=== PATIENT | female | born 1985 | race African-American/Black ===

== ENCOUNTER 2018-06-23 10:52 | Inpatient (IN) | payer OTHER ==
[2018-06-23] MEDS ORDERED: DEXTROSE 5%-LACTATED RINGERS 1,000 ML IV SCH (12:15)
[2018-06-23 14:31] LABS: GAMMA GLUTAMYL TRANSPEPTIDASE 12 U/L (5-85); SGOT/AST 20 U/L (15-37); SGPT/ALT 19 U/L (13-61)
[2018-06-23 15:48] LABS: URINE APPEARANCE CLOUDY; URINE BILIRUBIN NEGATIVE (<2.0 mg/dL); URINE COLOR YELLOW; URINE GLUCOSE (UA) NEGATIVE (NEGATIVE); URINE KETONE NEGATIVE (NEGATIVE); URINE LEUK ESTERASE 3+ (NEGATIVE); URINE NITRITE NEGATIVE (NEGATIVE); URINE PROTEIN 1+ (NEGATIVE); URINE UROBILINOGEN NEGATIVE mg/dL (0.2-1.0)
[2018-06-23 15:51] LABS: EPI CELLS FEW /HPF (FEW); URINE BACTERIA RARE /hpf (NONE SEEN); URINE MUCUS RARE; YEAST FEW
[2018-06-24 03:52] LABS: BASO % 0.6 % (0-2.0); EOS % 0.7 % (0-4.5)
[2018-06-24 03:57] LABS: HEMATOCRIT 32.5 % (32.4-45.2); HEMOGLOBIN 11.3 GM/dL (10.7-15.3); LYMPH % 18.4 % (8-40); MCH 30.3 pg (25.7-33.7); MCHC 34.7 g/dl (32.0-36.0); MEAN CELL VOLUME 87.3 fl (80-96); MEAN PLT VOLUME 10.5 fl (7.5-11.1); MONO % 9.7 % (3.8-10.2); NEUT % 70.6 % (42.8-82.8); PLATELET COUNT 222 K/MM3 (134-434); RBC 3.73 M/mm3 (3.60-5.2); RDW 15.4 % (11.6-15.6); WHITE BLOOD COUNT 9.7 K/mm3 (4.0-10.0)
[2018-06-24] MEDS ORDERED: CITRIC ACID/SODIUM CITRATE 30 ML UNIT-DOSE CUP PO ONE (04:09)
[2018-06-24] MEDS ORDERED: METHYLERGONOVINE MALEATE 0.2 MG/1 ML AMP IM PRN (04:10)
[2018-06-24 04:15] LABS: INR 0.9 (0.83-1.09); PROTHROMBIN TIME (PATIENT) 10.6 SEC (9.7-13.0)
[2018-06-24] MEDS ORDERED: ELECTROLYTE-148 SOLN 1,000 ML IV SCH (04:15)
[2018-06-24 04:22] LABS: ANION GAP 10 MMOL/L (8-16); BLOOD UREA NITROGEN 26 mg/dL (7-18); CALCIUM 8.7 mg/dL (8.5-10.1); CHLORIDE 110 mmol/L (98-107); CO2 19 mmol/L (21-32); CREATININE 2.3 mg/dL (0.55-1.3); GLUCOSE,RANDOM 81 mg/dL (74-106); POTASSIUM 4.8 mmol/L (3.5-5.1); SODIUM 139 mmol/L (136-145)
--- NOTE | 2018-06-24 04:26 | HP ---
Past Medical History - Primary Care Physician PCP:: Jessica Goodman - Admission Chief Complaint: Breech. Polyhyamnious. rupture of membranes. 36 weeks. Macrosomia. Previous Abdominal Myomectomy. Gestational Diabetes History Source: Patient Limitations to Obtaining History: No Limitations - Past Medical History ...: 3 ...Para: 0 ...Term: 0 ...: 0 ...Spon : 2 ...Induced : 0 ...LMP: 10/12/17 ... Weeks Gestation by Dates: 36.1 ...EDC by Dates: 07/19/18 Endocrine: Yes: Diabetes Mellitus - Past Surgical History Hx Myomectomy: No Hx Transabdominal Cerclage: No Additional Surgical History: Abdominal myomectomy at [place] in 2017 - Smoking History Smoking history: Never smoked Aproximately how many cigarettes per day: 0 - Alcohol/Substance Use Hx Alcohol Use: No History of Substance Use: reports: None - Social History Usual Living Arrangement: Yes: With Spouse History of Recent Travel: No Home Medications - Allergies Allergies/Adverse Reactions: Allergies Allergy/AdvReac Type Severity Reaction Status Date / Time latex Allergy Mild Itching Verified 05/24/18 14:17 - Home Medications Home Medications: Ambulatory Orders Vit Calc,Iron,Folic [ Vitamins] 1 each PO DAILY 03/01/18 Physical Exam - Maternity Vital Signs: Vital Signs Temperature 98.3 F 06/23/18 13:45 Pulse Rate 82 06/23/18 16:00 Respiratory Rate 20 06/23/18 16:00 Blood Pressure 136/84 06/23/18 16:00 O2 Sat by Pulse Oximetry (%) - Abdominal Exam/OB Number of Fetuses: Single Presentation: Vertex Contractions: Yes Regularity: Regular Monitor Mode: External Category: I - Vaginal Exam/OB Vaginal Bleediing: No Dilatation (cm): 1 Amniotic Membrane Status: Ruptured Amniotic Fluid: Yes: Meconium Stained Presentation: Henry Breech - Physical Exam Musculoskeletal: Yes: WNL Extremities: Yes: WNL Edema: No Psychiatric: Yes: WNL, Alert, Oriented - Labs Lab Results: CBC, BMP 06/24/18 03:35 Problem List - Problems (1) Macrosomia Code(s): P08.0 - EXCEPTIONALLY LARGE BABY (2) Breech presentation Code(s): O32.1XX0 - MATERNAL CARE FOR BREECH PRESENTATION, UNSP Assessment/Plan Gestational Diabetes Gestational Hypertension Breech previous Section previous abdominal myomectomy sickle cell trait IUP at 36 week premature rupture of membranes - meconium Cat 1 labor Plan Primary Section
[2018-06-24] MEDS ORDERED: CEFAZOLIN 1 GM/D5W 1 GM/50 ML BAG IVPB SCH (04:30)
[2018-06-24] MEDS ORDERED: AMPICILLIN - 2 GM in SODIUM CHLORIDE 100 ML IVPB ONE (04:31)
[2018-06-24] MEDS ORDERED: LABETALOL HCL 200 MG TABLET (FP) PO STA (04:32)
[2018-06-24 05:19] LABS: RETICULOCYTES 2.34 % (0.5-1.5)
[2018-06-24 05:21] LABS: URIC ACID 10.3 mg/dL (2.6-7.2)
[2018-06-24] MEDS: OXYTOCIN 20 UNITS in 0.9% NS 20 UNIT/1,000 ML INFUS.BAG IV SCH ×3 (05:50→15:52)
[2018-06-24] MEDS ORDERED: LABETALOL HCL 200 MG TABLET (FP) PO SCH ×2 (06:00→12:15)
[2018-06-24] MEDS ORDERED: ONDANSETRON 4 MG/2 ML VIAL IVPUSH PRN (06:39)
[2018-06-24 06:47] LABS: ARTERIAL BLOOD GAS BASE EXCESS -9.1 meq/l (-2-2); ARTERIAL BLOOD GAS PO2 2.4 mmHg (80-100)
[2018-06-24 06:50] LABS: VENOUS PC02 49.5 mmHg (38-52); VENOUS PO2 21.6 mmHg (28-48)
[2018-06-24 06:58] VITALS: BMI 34.7
[2018-06-24 07:08] LABS: ARTERIAL BLOOD GAS pH 7.14 (7.35-7.45)
[2018-06-24 07:09] LABS: ARTERIAL BLOOD GAS PCO2 66.8 mmHg (35-45)
[2018-06-24 07:12] LABS: ARTERIAL BLD GAS O2 SATURATION 2.7 % (90-98.9)
--- NOTE | 2018-06-24 07:15 | OP ---
Operative Note - Note: Operative Date: 06/24/18 Pre-Operative Diagnosis: Celi Breech. IUp 36 weeks. Gestation Hypertension. Gestation DM. previous myomectomy. prematare rupture of membranes. labor Operation: primary Section low transverse Findings: Live male infant nuchal cord X 1 celi breech Post-Operative Diagnosis: Same as Pre-op Surgeon: Jessica Goodman Insurance Professional: Dez Marx Anesthesiologist/COMPUTER SYSTEMS SECURITY ADMINISTRATOR: Alonzo Matias Anesthesia: Spinal Estimated Blood Loss (mls): 600 Operative Report Dictated: Yes
[2018-06-24 07:16] LABS: VENOUS PH 7.23 (7.32-7.42)
[2018-06-24] MEDS ORDERED: TUBERCULIN PPD 5 TU/0.1ML SYRINGE (IN PATIENT USE ONLY) ID ONE (08:00)
--- NOTE | 2018-06-24 08:32 | OP ---
DATE OF OPERATION: 06/24/2018 PREOPERATIVE DIAGNOSIS: Celi breech, intrauterine at 36 weeks, gestational hypertension, gestational diabetes, previous myomectomy, premature rupture of membranes, and labor. SURGEON: Gilmer Goodman MD JOURNEYMAN CARPENTER: MEGHAN Gómez. unavailable. POSTOPERATIVE DIAGNOSIS: Celi breech, intrauterine at 36 weeks, gestational hypertension, gestational diabetes, previous myomectomy, premature rupture of membranes, and labor. Plus live male , nuchal cord x1. ANESTHESIA: Spinal. ANESTHESIOLOGIST: Alonzo Matias DO PROCEDURE: Patient was taken to the operating room, placed in supine position, prepped and draped in the usual sterile fashion. A time-out was called in accordance with hospital regulations. A Pfannenstiel skin incision was made with the scalpel. Cautery was then used to go through the layers of the abdominal wall to the level of the fascia. Fascia was cut in the midline. Cautery was then used to open the fascia in smiling fashion. Obdulia was then used to bluntly and sharply dissect the rectus muscle off the fascia. The muscle was split in the midline. Peritoneal cavity was then entered and carried up and downwards. Bladder retractor was then placed. Adhesions were noted, bladder, folded on each other and were removed. Bladder was bluntly dissected out of the operative field. Scalpel was then used to make a low transverse uterine incision. Incision was carried up with the use of bandage scissors. A live male infant was delivered in celi breech extraction. Head was delivered without difficulty. Nuchal cord was noted and reduced. The cord was clamped and cut. Cord pH done. Cord blood obtained. Infant was handed to the see supervisor. Infants weight was 9 pounds 14 ounces. Placenta was manually extracted from the uterus. The uterus was exteriorized and cleaned with clean lap pads. Uterine incision was closed using 0 Biosyn suture, first layer with continuous interlocking and second layer imbricating the first layer. Hemostasis was achieved. Tubes and ovaries noted to be normal. Uterus interiorized. Abdominal cavity cleaned with clean lap pads. Peritoneum closed using 0 Biosyn suture in a continuous fashion. Muscles were approximated in the midline using 0 Vicryl suture. Fascia was then closed using 0 Vicryl suture in 2 parts. Skin was then closed using 3-0 Vicryl in subcuticular fashion. Wound was washed and dressed. Patient tolerated the procedure well. Estimated blood loss was 600 mL. GILMER GOODMAN M.D. [id number]
[2018-06-24] MEDS ORDERED: NIFEdipine E.R. 30 MG TABLET (FP) PO SCH ×3 (09:15→13:49)
[2018-06-24 09:45] LABS: ANISOCYTOSIS 0; MACROCYTOSIS 0
[2018-06-24 11:58] LABS: PLATELET ESTIMATE ADEQUATE
[2018-06-24] MEDS ORDERED: LABETALOL HCL 200 MG TABLET (FP) PO ONE (12:00)
[2018-06-24] MEDS ORDERED: NIFEdipine E.R. 30 MG TABLET (FP) PO ONE (14:00)
--- NOTE | 2018-06-24 16:15 | CONSULT ---
Consult Consult Specialty:: Nephrology ( Marty/ Brando) Referred by:: dr. Domínguez - History of Present Illness Chief Complaint: Intrapartum hypertension. History of Present Illness: 32 y/o female, s/p LSCS for breech prentation at 36 weeks. Has elevated Blood pressure Intra and post . The patient is totally comfortable. has h/o Gestational Diabetes recently. BP was normal until labor. Not known to have any kidney disease. No family h/orenal disease. she used to take NSAID for menstrual pains before she got . - History Source History Provided By: Patient, Medical Record Limitations to Obtaining History: No Limitations - Past Medical History COMMERCIAL LEASING AGENT: Yes: Alzheimer's, CVA, Dementia, Migraine, Multiple Sclerosis, Peripheral Neuropathy, Parkinson's, Seizure, Syncope, TIA, Vertigo, Other Cardio/Vascular: Yes: AFIB, Aneurysm, Aortic Insufficiency, Aortic Stenosis, CAD , CHF, Deep Vein Thrombosis, HTN, Hyperlipdemia, SC, Mitral Insufficiency, Mitral Stenosis, Murmur, Pulmonary Hypertension, Other Pulmonary: Yes: Asthma, Bronchitis, Cancer, COPD, O2 Dependent, Pneumonia, Previously Intubated, Pulmonary Embolus, Pulmonary Fibrosis, Sleep Apnea, Other Gastrointestinal: Yes: Ascites, Cancer, Constipation, Crohn's Disease, Diverticulitis, Diverticulosis, Esophageal Varices, Gastritis, GERD, GI Bleed, Hemorrhoids, Hiatal Hernia, Inflamatory Bowel Disease, Irritable Bowel Disease, Pancreatitis, Peptic Ulcer Disease, Ulcerative Colitis, Other Hepatobiliary: Yes: Cirrhosis, Cholelithiasis, Cholecystitis, Choledocholithiasis, Hepatitis A, Hepatitis B, Hepatitis C, Other Renal/: No: Renal Inusuff, Hematuria, Renal Calculi, UTI Endocrine: Yes: Diabetes Mellitus (gestational) - Past Surgical History Past Surgical History: Yes: None Additional Surgical History: Abdominal myomectomy at [place] in 2017 - Alcohol/Substance Use Hx Alcohol Use: No History of Substance Use: reports: None - Smoking History Smoking history: Never smoked Aproximately how many cigarettes per day: 0 - Social History History of Recent Travel: No Home Medications - Allergies Allergies/Adverse Reactions: Allergies Allergy/AdvReac Type Severity Reaction Status Date / Time latex Allergy Mild Itching Verified 05/24/18 14:17 - Home Medications Home Medications: Ambulatory Orders Vit Calc,Iron,Folic [ Vitamins] 1 each PO DAILY 03/01/18 Review of Systems - Review of Systems Constitutional: reports: No Symptoms Eyes: reports: No Symptoms. denies: Blurred Vision, Double Vision, Eye Pain, Photophobia HENT: reports: No Symptoms Neck: reports: No Symptoms Cardiovascular: reports: No Symptoms. denies: Chest Pain, Palpitations, Shortness of Breath Respiratory: reports: No Symptoms Gastrointestinal: reports: No Symptoms Genitourinary: reports: No Symptoms Neurological: reports: No Symptoms. denies: Change in LOC, Change in Speech, Confusion, Dizziness Hematology/Lymphatic: denies: No Symptoms, Easily Bruised, Excessive Bleeding Physical Exam Vital Signs: Vital Signs Temperature 97.8 F 06/24/18 12:00 Pulse Rate 87 06/24/18 15:00 Respiratory Rate 18 06/24/18 16:00 Blood Pressure 172/85 H 06/24/18 15:00 O2 Sat by Pulse Oximetry (%) 100 06/24/18 08:00 Constitutional: Yes: Well Nourished Eyes: Yes: WNL HENT: Yes: WNL Neck: Yes: WNL Cardiovascular: Yes: WNL, Regular Rate and Rhythm, S1, S2 Respiratory: Yes: Regular, CTA Bilaterally Gastrointestinal: Yes: Normal Bowel Sounds, Soft Renal/: No: CVA Tenderness - Left, CVA Tenderness - Right Edema: Yes Edema: LLE: Trace, RLE: Trace Neurological: Yes: WNL, Alert, Oriented Labs: CBC, BMP 06/24/18 03:45 06/24/18 03:35 Assessment/Plan 32 y/o female, s/p LSCS for breech presentation. Has elevated Blood pressure Intra and post . The patient is totally comfortable. has h/o Gestational Diabetes recently. BP was normal until labor. Not known to have any kidney disease. No family h/orenal disease. She used to take NSAID for menstrual pains before she got . associated hypertension...Pre-ecclampsia. BP remains elevated.No evidence of HELLP. Will continue Labetalol and Nifedipine, and titrate to BP systolic less than 145 mm Hg. Abnormal Renal functions... ? AYESHA. ? CKD. (In 2012 she had a normal serum cr of 0.9mg/dL). The etiology of this seems quite obscure. There is no clinical evidence of Acute cortical necrosis. No oliguria, or hematuria. Basic w/u ordered. detailed w/u warranted if the renal functions do not improve. Orders reviewed with [facility] nurses regarding medication regimen. discussed with dr. Domínguez. Thank you. Will follow with you. Sil Ferguson MD
[2018-06-24] MEDS: CEFAZOLIN 1 GM/D5W 1 GM/50 ML BAG IVPB SCH (18:00)
[2018-06-24] MEDS: LABETALOL HCL 200 MG TABLET (FP) PO SCH (18:00)
[2018-06-24 18:08] LABS: RETICULOCYTES 2.5 % (0.5-1.5)
[2018-06-24 19:18] LABS: ANION GAP 11 MMOL/L (8-16); BLOOD UREA NITROGEN 20 mg/dL (7-18); CALCIUM 8.3 mg/dL (8.5-10.1); CHLORIDE 109 mmol/L (98-107); CO2 20 mmol/L (21-32); GAMMA GLUTAMYL TRANSPEPTIDASE 10 U/L (5-85); GLUCOSE,RANDOM 162 mg/dL (74-106); POTASSIUM 4.8 mmol/L (3.5-5.1); SGOT/AST 29 U/L (15-37); SGPT/ALT 16 U/L (13-61); SODIUM 140 mmol/L (136-145); URIC ACID 9.3 mg/dL (2.6-7.2)
[2018-06-25] MEDS: LABETALOL HCL 200 MG TABLET (FP) PO SCH ×2 (01:27→06:11)
[2018-06-25] MEDS: CEFAZOLIN 1 GM/D5W 1 GM/50 ML BAG IVPB SCH ×2 (02:30→09:05)
[2018-06-25] MEDS: oxyCODONE HCL 5 MG TABLET PO PRN ×4 (03:08→21:13)
[2018-06-25] MEDS ORDERED: oxyCODONE HCL 5 MG TABLET PO PRN (04:10)
[2018-06-25] MEDS ORDERED: BISACODYL 10 MG SUPP.RECT RC PRN (04:11)
[2018-06-25] MEDS: ACETAMINOPHEN 325 MG TABLET (FP) PO PRN ×3 (04:41→21:13)
[2018-06-25] MEDS: NIFEdipine E.R. 30 MG TABLET (FP) PO SCH (06:11)
[2018-06-25 06:45] LABS: BASO % 0.4 % (0-2.0); EOS % 0.7 % (0-4.5); HEMATOCRIT 31.9 % (32.4-45.2); HEMOGLOBIN 10.8 GM/dL (10.7-15.3); LYMPH % 11.3 % (8-40); MCH 29.4 pg (25.7-33.7); MCHC 33.8 g/dl (32.0-36.0); MONO % 8.3 % (3.8-10.2); NEUT % 79.3 % (42.8-82.8); PLATELET COUNT 191 K/MM3 (134-434); RBC 3.66 M/mm3 (3.60-5.2); RDW 15.1 % (11.6-15.6); WHITE BLOOD COUNT 14.4 K/mm3 (4.0-10.0)
[2018-06-25 07:33] LABS: ALBUMIN 1.8 g/dl (3.4-5.0); ALK PHOS 119 U/L (45-117); ANION GAP 9 MMOL/L (8-16); BILIRUBIN,TOTAL 0.4 mg/dL (0.2-1); BLOOD UREA NITROGEN 17 mg/dL (7-18); CALCIUM 8.2 mg/dL (8.5-10.1); CHLORIDE 111 mmol/L (98-107); CO2 21 mmol/L (21-32); CREATININE 1.6 mg/dL (0.55-1.3); GLUCOSE,RANDOM 86 mg/dL (74-106); PHOSPHOROUS 3.4 mg/dL (2.5-4.9); POTASSIUM 4.8 mmol/L (3.5-5.1); SGOT/AST 25 U/L (15-37); SGPT/ALT 14 U/L (13-61); SODIUM 141 mmol/L (136-145); TOT PROT 4.9 g/dl (6.4-8.2)
[2018-06-25] MEDS: SIMETHICONE 80 MG TAB.CHEW (FP) PO PRN ×3 (08:04→21:13)
[2018-06-25] MEDS: LABETALOL HCL 200 MG TABLET (FP) PO PRN ×2 (09:05→18:21)
--- NOTE | 2018-06-25 09:12 | PN ---
Progress Note (short form) - Note Progress Note: Anesthesiology Post-op 32 y.o. woman POD#1 s/p C/S under spinal anesthesia. Pt. is OOB in chair, comfortable in NAD. She c/o some mild h/a earlier but this has improved. BP remains slightly elevated and pt. has Labetalol ordered. Other VSS. Creatinine elevated, but trending down from yesterday. She is able to move legs easily and has no residual paresthesia. 32 y.o. woman with preeclampsia but otherwise stable post-operative course. Continue management as per primary team.
[2018-06-25] MEDS: PRENATAL VITAMINS W/ FOLIC ACID TABLET (FP) PO SCH (09:16)
--- NOTE | 2018-06-25 11:49 | PN ---
Progress Note, Physician Chief Complaint: The patient seen and examined in her room. Has some headache. ? 2/2 Nifedipine. Denies anychest pain, Shortness of breath. No urinary complaints. History of Present Illness: 32 y/o female, s/p LSCS for breech prentation at 36 weeks. Elevated Blood pressure noted Intra and post . Has h/o Gestational Diabetes recently. BP was normal until labor. Not known to have any kidney disease. No family h/o renal disease. - Current Medication List Current Medications: Active Medications Acetaminophen (Tylenol -) 650 mg PO Q4H PRN PRN Reason: PAIN LEVEL 1-5 Last Admin: 06/25/18 04:41 Dose: 650 mg Bisacodyl (Dulcolax Suppository -) 10 mg RC PRN PRN PRN Reason: CONSTIPATION Diphenhydramine HCl (Benadryl Injection -) 25 mg IVPUSH Q4H PRN PRN Reason: Pruritis Last Admin: 06/24/18 23:10 Dose: 25 mg Oxytocin/Sodium Chloride (Normal Saline+20 Units Oxytocin -) 20 unit in 1,000 mls @ 125 mls/hr IV [facility] Last Admin: 06/24/18 15:52 Dose: 125 mls/hr Parenteral Electrolytes (Plasma-Lyte 148 -) 1,000 mls @ 125 mls/hr IV [facility] Last Admin: 06/24/18 03:15 Dose: 125 mls/hr Labetalol HCl (Normodyne -) 200 mg PO Q6H PRN PRN Reason: HYPERTENSION Last Admin: 06/25/18 09:05 Dose: 200 mg Methylergonovine Maleate (Methergine Injection -) 0.2 mg IM Q4H PRN PRN Reason: Excessive Bleeding (L&D) Nifedipine (Procardia Xl -) 60 mg PO 0600 [facility] Last Admin: 06/25/18 06:11 Dose: 60 mg Ondansetron HCl (Zofran Injection) 4 mg IVPUSH Q4H PRN PRN Reason: NAUSEA Oxycodone HCl (Roxicodone -) 5 mg PO Q4H PRN PRN Reason: PAIN LEVEL 4 - 6 Last Admin: 06/24/18 21:30 Dose: 5 mg Oxycodone HCl (Roxicodone -) 10 mg PO Q4H PRN PRN Reason: PAIN LEVEL 7 - 10 Last Admin: 06/25/18 08:04 Dose: 10 mg Multivit/Folic Acid/Iron ( Vitamins (Sjr) -) 1 tab PO DAILY [facility] Last Admin: 06/25/18 09:16 Dose: Not Given Simethicone (Mylicon -) 80 mg PO Q4H PRN PRN Reason: GAS Last Admin: 06/25/18 08:04 Dose: 80 mg - Objective Vital Signs: Vital Signs Temperature 98.1 F 06/25/18 10:00 Pulse Rate 88 06/25/18 10:00 Respiratory Rate 20 06/25/18 10:00 Blood Pressure 147/94 06/25/18 10:00 O2 Sat by Pulse Oximetry (%) 100 06/24/18 08:00 Constitutional: Yes: Anxious, Mild Distress (from pain) Eyes: No: Diplopia, PERRL HENT: Yes: Atraumatic, Normocephalic Neck: Yes: Supple, Trachea Midline Cardiovascular: Yes: Regular Rate and Rhythm, S1, S2 Respiratory: Yes: CTA Bilaterally, Diminished, SOB Gastrointestinal: Yes: Normal Bowel Sounds, Soft Genitourinary: No: Bladder Distention, CVA Tenderness - Left, CVA Tenderness - Right Edema: LLE: Trace, RLE: Trace Labs: CBC, BMP 06/25/18 05:15 06/25/18 05:15 INR, PTT INR 0.90 (0.83-1.09) 06/24/18 03:35 Assessment/Plan 32 y/o female, s/p LSCS for breech presentation. Has elevated Blood pressure Intra and . The patient is totally comfortable. has h/o Gestational Diabetes recently. BP was normal until labor. Not known to have any kidney disease. No family h/o renal disease. associated hypertension...Pre-ecclampsia. BP slowly improving on the current regimen. Abnormal Renal functions... ? AYESHA. ? CKD. (In 2012 she had a normal serum cr of 0.9mg/dL). Possibly from Hemodynamic factors, rather than intrinsic Renal disease. renal functions are slowly improving. Maintain euvolemia. Thank you. Will follow with you. Sil Ferguson MD
[2018-06-25 14:18] LABS: BASO % 0.3 % (0-2.0); EOS % 0.5 % (0-4.5); HEMOGLOBIN 10.6 GM/dL (10.7-15.3); LYMPH % 8.5 % (8-40); MCH 29.8 pg (25.7-33.7); MCHC 34.3 g/dl (32.0-36.0); MEAN CELL VOLUME 86.9 fl (80-96); MEAN PLT VOLUME 9.5 fl (7.5-11.1); MONO % 6.7 % (3.8-10.2); PLATELET COUNT 199 K/MM3 (134-434); RBC 3.56 M/mm3 (3.60-5.2); RDW 15.3 % (11.6-15.6); WHITE BLOOD COUNT 13.6 K/mm3 (4.0-10.0)
--- NOTE | 2018-06-25 16:21 | PN ---
Post Note - Post Date of Delivery: 06/24/18 Post Day: 1 Vital Signs: Vital Signs - 24 hr 06/24/18 06/24/18 06/24/18 17:00 17:43 18:00 Temperature 98.1 F Pulse Rate 74 Respiratory 18 18 18 Rate Blood Pressure 146/88 06/24/18 06/24/18 06/24/18 19:00 20:00 21:00 Temperature Pulse Rate 74 78 80 Respiratory 18 18 20 Rate Blood Pressure 138/88 138/91 141/100 06/24/18 06/24/18 06/25/18 22:00 23:00 00:00 Temperature 98.1 F Pulse Rate 78 84 Respiratory 18 20 20 Rate Blood Pressure 132/88 121/84 06/25/18 06/25/18 06/25/18 01:00 02:00 03:00 Temperature 98.0 F Pulse Rate 83 Respiratory 20 20 20 Rate Blood Pressure 139/95 06/25/18 06/25/18 06/25/18 04:00 05:00 06:00 Temperature 98.1 F 98.2 F Pulse Rate 87 79 Respiratory 20 20 20 Rate Blood Pressure 151/91 134/78 06/25/18 06/25/18 06/25/18 07:00 08:00 10:00 Temperature 98.1 F Pulse Rate 88 Respiratory 20 20 20 Rate Blood Pressure 147/94 06/25/18 06/25/18 06/25/18 11:00 12:00 13:00 Temperature Pulse Rate Respiratory 20 20 20 Rate Blood Pressure 06/25/18 06/25/18 14:00 15:00 Temperature 97.7 F Pulse Rate 88 Respiratory 20 20 Rate Blood Pressure 122/86 Labs: Laboratory Results - last 24 hr 06/24/18 06/24/18 06/24/18 03:35 17:52 17:52 WBC RBC Hgb Hct MCV MCH MCHC RDW Plt Count 193 MPV Absolute Neuts (auto) Neutrophils % Lymphocytes % Monocytes % Eosinophils % Basophils % Nucleated RBC % Retic Count 2.50 H Haptoglobin < 10 L Sodium 140 Potassium 4.8 Chloride 109 H Carbon Dioxide 20 L Anion Gap 11 BUN 20 H Creatinine 2.0 H Creat Clearance w eGFR 29.06 POC Glucometer Random Glucose 162 H Uric Acid 9.3 H Calcium 8.3 L Phosphorus Total Bilirubin GGT AST ALT Alkaline Phosphatase Total Protein Albumin TSH 06/24/18 06/25/18 06/25/18 17:52 05:15 05:15 WBC 14.4 H RBC 3.66 Hgb 10.8 Hct 31.9 L MCV 87.0 MCH 29.4 MCHC 33.8 RDW 15.1 Plt Count 191 MPV 10.0 Absolute Neuts (auto) 11.4 H Neutrophils % 79.3 Lymphocytes % 11.3 D Monocytes % 8.3 Eosinophils % 0.7 Basophils % 0.4 Nucleated RBC % 0 Retic Count Haptoglobin Sodium 141 Potassium 4.8 Chloride 111 H Carbon Dioxide 21 Anion Gap 9 BUN 17 Creatinine 1.6 H Creat Clearance w eGFR 37.60 POC Glucometer Random Glucose 86 Uric Acid Calcium 8.2 L Phosphorus 3.4 Total Bilirubin 0.4 GGT 10 AST 29 25 ALT 16 14 Alkaline Phosphatase 119 H Total Protein 4.9 L Albumin 1.8 L TSH 1.06 06/25/18 06/25/18 06:59 13:45 WBC 13.6 H RBC 3.56 L Hgb 10.6 L Hct 31.0 L MCV 86.9 MCH 29.8 MCHC 34.3 RDW 15.3 Plt Count 199 MPV 9.5 Absolute Neuts (auto) 11.5 H Neutrophils % 84.0 H Lymphocytes % 8.5 D Monocytes % 6.7 Eosinophils % 0.5 Basophils % 0.3 Nucleated RBC % 0 Retic Count Haptoglobin Sodium Potassium Chloride Carbon Dioxide Anion Gap BUN Creatinine Creat Clearance w eGFR POC Glucometer 99 Random Glucose Uric Acid Calcium Phosphorus Total Bilirubin GGT AST ALT Alkaline Phosphatase Total Protein Albumin TSH - Subjective Subjective: No Complaints, No Nausea or vomiting, Scant lochia - Objective Afebrile: Yes Breast: Not engorged Abdomen: Soft, Non-tender Uterus: Fundus firm Vagina: Scant lochia Extremities: Edema - Assessment/Plan (1) Macrosomia Assessment: Other (SP section Gestation HTN) Plan: Routine Care, Other (Continue labetalol COntinue procardia)
[2018-06-26] MEDS: NIFEdipine E.R. 30 MG TABLET (FP) PO SCH (05:54)
[2018-06-26 07:48] LABS: ALBUMIN 2.1 g/dl (3.4-5.0); ALK PHOS 129 U/L (45-117); ANION GAP 7 MMOL/L (8-16); BILIRUBIN,TOTAL 0.4 mg/dL (0.2-1); BLOOD UREA NITROGEN 15 mg/dL (7-18); CALCIUM 8.6 mg/dL (8.5-10.1); CHLORIDE 108 mmol/L (98-107); CO2 24 mmol/L (21-32); CREATININE 1.7 mg/dL (0.55-1.3); GLUCOSE,RANDOM 89 mg/dL (74-106); POTASSIUM 4.6 mmol/L (3.5-5.1); SGOT/AST 28 U/L (15-37); SGPT/ALT 15 U/L (13-61); SODIUM 139 mmol/L (136-145); TOT PROT 5.8 g/dl (6.4-8.2)
[2018-06-26] MEDS: PRENATAL VITAMINS W/ FOLIC ACID TABLET (FP) PO SCH (09:12)
--- NOTE | 2018-06-26 10:39 | PN ---
Post Note - Post Date of Delivery: 06/24/18 Vital Signs: Vital Signs - 24 hr 06/25/18 06/25/18 06/25/18 11:00 12:00 13:00 Temperature Pulse Rate Respiratory 20 20 20 Rate Blood Pressure 06/25/18 06/25/18 06/25/18 14:00 15:00 18:00 Temperature 97.7 F 98 F Pulse Rate 88 90 Respiratory 20 20 20 Rate Blood Pressure 122/86 143/93 06/25/18 06/26/18 06/26/18 22:00 02:00 06:00 Temperature 98.5 F 98.5 F 98.3 F Pulse Rate 83 83 89 Respiratory 20 20 20 Rate Blood Pressure 137/85 130/83 127/81 06/26/18 07:45 Temperature 98.7 F Pulse Rate 81 Respiratory 20 Rate Blood Pressure 139/80 Labs: Laboratory Results - last 24 hr 06/25/18 06/26/18 13:45 06:45 WBC 13.6 H RBC 3.56 L Hgb 10.6 L Hct 31.0 L MCV 86.9 MCH 29.8 MCHC 34.3 RDW 15.3 Plt Count 199 MPV 9.5 Absolute Neuts (auto) 11.5 H Neutrophils % 84.0 H Lymphocytes % 8.5 D Monocytes % 6.7 Eosinophils % 0.5 Basophils % 0.3 Nucleated RBC % 0 Sodium 139 Potassium 4.6 Chloride 108 H Carbon Dioxide 24 Anion Gap 7 L BUN 15 Creatinine 1.7 H Creat Clearance w eGFR 35.06 Random Glucose 89 Calcium 8.6 Total Bilirubin 0.4 AST 28 ALT 15 Alkaline Phosphatase 129 H Total Protein 5.8 L Albumin 2.1 L - Subjective Subjective: No Complaints - Objective Afebrile: Yes Breast: Not engorged Abdomen: Soft, Non-tender Uterus: Fundus firm, Non-tender Vagina: Scant lochia Extremities: Non-tender - Assessment/Plan (1) Macrosomia Assessment: Other (Gestational Hypertension sp section) (2) Breech presentation Assessment: Other (Continue present management)
--- NOTE | 2018-06-26 11:40 | PN ---
Progress Note (short form) - Note Progress Note: Renal follow up for hypertension and AYESHA/CKD Pt seen and examined at the bedside had some abd pain no headache today no sob, chest pain, abd pain making urine Vital Signs Temperature 98.7 F 06/26/18 07:45 Pulse Rate 81 06/26/18 07:45 Respiratory Rate 20 06/26/18 07:45 Blood Pressure 139/80 06/26/18 07:45 O2 Sat by Pulse Oximetry (%) 100 06/24/18 08:00 Intake & Output 06/23/18 06/24/18 06/25/18 06/26/18 23:59 23:59 23:59 23:59 Intake Total 1000 5325 450 Output Total 2850 2750 Balance 1000 2475 -2300 Weight 76.204 kg 88.904 kg NAD Trace LE edema CBC, BMP 06/25/18 13:45 06/26/18 06:45 Current Medications Acetaminophen (Tylenol -) 650 mg PO Q4H PRN PRN Reason: PAIN LEVEL 1-5 Last Admin: 06/25/18 21:13 Dose: 650 mg Bisacodyl (Dulcolax Suppository -) 10 mg RC PRN PRN PRN Reason: CONSTIPATION Diphenhydramine HCl (Benadryl Injection -) 25 mg IVPUSH Q4H PRN PRN Reason: Pruritis Last Admin: 06/24/18 23:10 Dose: 25 mg Labetalol HCl (Normodyne -) 200 mg PO Q6H PRN PRN Reason: HYPERTENSION Last Admin: 06/25/18 18:21 Dose: 200 mg Methylergonovine Maleate (Methergine Injection -) 0.2 mg IM Q4H PRN PRN Reason: Excessive Bleeding (L&D) Nifedipine (Procardia Xl -) 60 mg PO 0600 [facility] Last Admin: 06/26/18 05:54 Dose: 60 mg Ondansetron HCl (Zofran Injection) 4 mg IVPUSH Q4H PRN PRN Reason: NAUSEA Oxycodone HCl (Roxicodone -) 5 mg PO Q4H PRN PRN Reason: PAIN LEVEL 4 - 6 Last Admin: 06/24/18 21:30 Dose: 5 mg Oxycodone HCl (Roxicodone -) 10 mg PO Q4H PRN PRN Reason: PAIN LEVEL 7 - 10 Last Admin: 06/25/18 21:13 Dose: 10 mg Multivit/Folic Acid/Iron ( Vitamins (Sjr) -) 1 tab PO DAILY [facility] Last Admin: 06/26/18 09:12 Dose: 1 tab Simethicone (Mylicon -) 80 mg PO Q4H PRN PRN Reason: GAS Last Admin: 06/25/18 21:13 Dose: 80 mg 32 year old Jud [place] woman with no significant PMhx who presented for C- section now with AYESHA and Hypertension #AYESHA vs. CKD # Hypertension (normal LFT's an ptl counts, 1+ protein in urine) Renal function with gradual improvement, AYESHA may be related to fluid shifts and BP shifts at time of dilivery Check Renal US to ensure there are no structural abnormalities of the kidney Check UPCR continue BP control with Nifedpine ER 30mg Daily, continue Labetalol for SBP > 160/100 pain control w/o NSIADis Trend renal function and BP Low salt diet Sean Michaels DO
[2018-06-26] MEDS ORDERED: LABETALOL HCL 200 MG TABLET (FP) PO PRN (11:42)
[2018-06-26 12:56] LABS: BASO % 0.6 % (0-2.0); EOS % 1.1 % (0-4.5); HEMATOCRIT 30.6 % (32.4-45.2); HEMOGLOBIN 10.7 GM/dL (10.7-15.3); LYMPH % 12.7 % (8-40); MCH 30.4 pg (25.7-33.7); MCHC 34.9 g/dl (32.0-36.0); MEAN PLT VOLUME 9.7 fl (7.5-11.1); MONO % 8.2 % (3.8-10.2); NEUT % 77.4 % (42.8-82.8); PLATELET COUNT 227 K/MM3 (134-434); RBC 3.52 M/mm3 (3.60-5.2); RDW 15.6 % (11.6-15.6); WHITE BLOOD COUNT 11.2 K/mm3 (4.0-10.0)
[2018-06-26] MEDS: oxyCODONE HCL 5 MG TABLET PO PRN (13:59)
[2018-06-26] MEDS: ACETAMINOPHEN 325 MG TABLET (FP) PO PRN (13:59)
[2018-06-26] MEDS: SIMETHICONE 80 MG TAB.CHEW (FP) PO PRN (14:00)
[2018-06-26 15:23] LABS: ANISOCYTOSIS 1+; MACROCYTOSIS 0; PLATELET ESTIMATE NORMAL
[2018-06-27] MEDS: ACETAMINOPHEN 325 MG TABLET (FP) PO PRN ×3 (00:02→21:14)
[2018-06-27] MEDS: oxyCODONE HCL 5 MG TABLET PO PRN ×3 (00:03→21:14)
[2018-06-27] MEDS: NIFEdipine E.R. 30 MG TABLET (FP) PO SCH (06:15)
[2018-06-27 08:48] LABS: BASO % 0.6 % (0-2.0); EOS % 1.6 % (0-4.5); HEMATOCRIT 29.2 % (32.4-45.2); HEMOGLOBIN 10.2 GM/dL (10.7-15.3); LYMPH % 19.7 % (8-40); MCH 30.5 pg (25.7-33.7); MEAN PLT VOLUME 8.8 fl (7.5-11.1); MONO % 8.6 % (3.8-10.2); NEUT % 69.5 % (42.8-82.8); PLATELET COUNT 225 K/MM3 (134-434); RBC 3.36 M/mm3 (3.60-5.2); RDW 15.6 % (11.6-15.6); WHITE BLOOD COUNT 8.5 K/mm3 (4.0-10.0)
[2018-06-27 08:57] LABS: ANION GAP 6 MMOL/L (8-16); BLOOD UREA NITROGEN 17 mg/dL (7-18); CALCIUM 8.4 mg/dL (8.5-10.1); CHLORIDE 107 mmol/L (98-107); CO2 27 mmol/L (21-32); CREATININE 1.4 mg/dL (0.55-1.3); GLUCOSE,RANDOM 85 mg/dL (74-106); MAGNESIUM 1.6 mg/dL (1.8-2.4); PHOSPHOROUS 3.6 mg/dL (2.5-4.9); POTASSIUM 4.1 mmol/L (3.5-5.1); SODIUM 140 mmol/L (136-145)
[2018-06-27] MEDS: PRENATAL VITAMINS W/ FOLIC ACID TABLET (FP) PO SCH (10:35)
--- NOTE | 2018-06-27 10:58 | PN ---
Post Progress Note - Subjective Subjective: 32 yo Para 1 status post primary , seen and evaluated. Doing well. Post Day: 3 Type of Delivery: Primary C/S Vital Signs: Vital Signs Temperature 98.4 F 06/27/18 06:00 Pulse Rate 99 H 06/27/18 06:00 Respiratory Rate 20 06/27/18 09:00 Blood Pressure 135/83 06/27/18 06:00 O2 Sat by Pulse Oximetry (%) 100 06/27/18 09:00 Breast Exam: Yes: Soft Uterus: Yes: Fundus Firm Incision: Yes: Other (Steri strips in place) Abdomen/GI: Yes: Abdomen soft, Tolerating PO Lochia: Yes: Rubra Lochia, amount: Small Extremities: Yes: Calves non-tender Activity: Ambulating - Labs Labs: CBC WBC 8.5 K/mm3 (4.0-10.0) 06/27/18 08:00 RBC 3.36 M/mm3 (3.60-5.2) L 06/27/18 08:00 Hgb 10.2 GM/dL (10.7-15.3) L 06/27/18 08:00 Hct 29.2 % (32.4-45.2) L 06/27/18 08:00 MCV 87.0 fl (80-96) 06/27/18 08:00 MCH 30.5 pg (25.7-33.7) 06/27/18 08:00 MCHC 35.0 g/dl (32.0-36.0) 06/27/18 08:00 RDW 15.6 % (11.6-15.6) 06/27/18 08:00 Plt Count 225 K/MM3 (134-434) 06/27/18 08:00 MPV 8.8 fl (7.5-11.1) 06/27/18 08:00 Absolute Neuts (auto) 5.9 K/mm3 (1.5-8.0) 06/27/18 08:00 Neutrophils % 69.5 % (42.8-82.8) 06/27/18 08:00 Neutrophils % (Manual) 77.2 % (42.8-82.8) 06/26/18 12:17 Band Neutrophils % 1.0 % 06/26/18 12:17 Lymphocytes % 19.7 % (8-40) D 06/27/18 08:00 Lymphocytes % (Manual) 10.9 % (8-40) D 06/26/18 12:17 Monocytes % 8.6 % (3.8-10.2) 06/27/18 08:00 Monocytes % (Manual) 1 % (3.8-10.2) L D 06/26/18 12:17 Eosinophils % 1.6 % (0-4.5) 06/27/18 08:00 Eosinophils % (Manual) 2.0 % (0-4.5) 06/26/18 12:17 Basophils % 0.6 % (0-2.0) 06/27/18 08:00 Basophils % (Manual) 1.0 % (0-2.0) D 06/26/18 12:17 Myelocytes % (Man) 1 % (0-2) D 06/26/18 12:17 Promyelocytes % (Man) 0 % (0-2) 06/26/18 12:17 Blast Cells % (Manual) 0 % (0-0) D 06/26/18 12:17 Nucleated RBC % 0 % (0-0) 06/27/18 08:00 Metamyelocytes 1 % (0-2) D 06/26/18 12:17 Hypochromia 1+ 06/26/18 12:17 Platelet Estimate Normal 06/26/18 12:17 Polychromasia 0 06/26/18 12:17 Poikilocytosis 0 06/26/18 12:17 Anisocytosis 1+ 06/26/18 12:17 Microcytosis 1+ 06/26/18 12:17 Macrocytosis 0 06/26/18 12:17 Retic Count 2.50 % (0.5-1.5) H 06/24/18 17:52 Haptoglobin < 10 mg/dL (34-200) L 06/24/18 17:52 Problem List - Problems (1) Status post primary low transverse section Code(s): Z98.891 - HISTORY OF UTERINE SCAR FROM PREVIOUS SURGERY Assessment/Plan Status post delivery Stable Continue routine post op care
[2018-06-27] MEDS: SIMETHICONE 80 MG TAB.CHEW (FP) PO PRN ×2 (12:52→21:15)
--- NOTE | 2018-06-27 13:07 | PN ---
Progress Note (short form) - Note Progress Note: Renal follow up for hypertension and AYESHA/CKD Pt seen and examined at the bedside no acute complaints denies any DENG, dizziness, cp, abd pain, flank pain making urine Vital Signs Temperature 97.2 F L 06/27/18 10:00 Pulse Rate 89 06/27/18 10:00 Respiratory Rate 20 06/27/18 10:00 Blood Pressure 121/75 06/27/18 10:00 O2 Sat by Pulse Oximetry (%) 100 06/27/18 09:00 Intake & Output 06/24/18 06/25/18 06/26/18 06/27/18 23:59 23:59 23:59 23:59 Intake Total 5325 450 Output Total 2850 2750 Balance 2475 -2300 Weight 88.904 kg NAD Trace LE edema CBC, BMP 06/27/18 08:00 06/27/18 08:00 Current Medications Acetaminophen (Tylenol -) 650 mg PO Q4H PRN PRN Reason: PAIN LEVEL 1-5 Last Admin: 06/27/18 12:52 Dose: 650 mg Bisacodyl (Dulcolax Suppository -) 10 mg RC PRN PRN PRN Reason: CONSTIPATION Diphenhydramine HCl (Benadryl Injection -) 25 mg IVPUSH Q4H PRN PRN Reason: Pruritis Last Admin: 06/24/18 23:10 Dose: 25 mg Labetalol HCl (Normodyne -) 200 mg PO Q6H PRN PRN Reason: HYPERTENSION Methylergonovine Maleate (Methergine Injection -) 0.2 mg IM Q4H PRN PRN Reason: Excessive Bleeding (L&D) Nifedipine (Procardia Xl -) 60 mg PO 0600 ADRIA Last Admin: 06/27/18 06:15 Dose: 60 mg Ondansetron HCl (Zofran Injection) 4 mg IVPUSH Q4H PRN PRN Reason: NAUSEA Oxycodone HCl (Roxicodone -) 5 mg PO Q4H PRN PRN Reason: PAIN LEVEL 4 - 6 Last Admin: 06/24/18 21:30 Dose: 5 mg Oxycodone HCl (Roxicodone -) 10 mg PO Q4H PRN PRN Reason: PAIN LEVEL 7 - 10 Last Admin: 06/27/18 12:53 Dose: 10 mg Multivit/Folic Acid/Iron ( Vitamins (Sjr) -) 1 tab PO DAILY ADRIA Last Admin: 06/27/18 10:35 Dose: 1 tab Simethicone (Mylicon -) 80 mg PO Q4H PRN PRN Reason: GAS Last Admin: 06/27/18 12:52 Dose: 80 mg 32 year old Jud Qat[place] woman with no significant PMhx who presented for C- section now with AYESHA and Hypertension #AYESHA vs. CKD # Hypertension (normal LFT's an ptl counts, 1+ protein in urine) Renal function with gradual improvement, AYESHA may be related to fluid shifts and BP shifts at time of dilivery + hydronephrosis US showed b/l hydronephrosis but likely physiologic hydronephrosis of pt w/o flank pain to indicate stone disease and also lacks a history of stone disease given renal function is already improving less likely that pt has a functional obstruction now would continue to trend renal function and electrolytes continue Nifedpine ER 30mg daily with Labetalol for surges in BP continue low salt diet pt will require follow up as an outpatient Sean Michaels DO
[2018-06-27 13:54] LABS: ANISOCYTOSIS 0; MACROCYTOSIS 0; PLATELET ESTIMATE NORMAL
[2018-06-28] MEDS: NIFEdipine E.R. 30 MG TABLET (FP) PO SCH (05:50)
[2018-06-28 05:54] VITALS: TEMP 98.1
[2018-06-28 08:14] LABS: ANION GAP 8 MMOL/L (8-16); BLOOD UREA NITROGEN 21 mg/dL (7-18); CHLORIDE 104 mmol/L (98-107); CO2 27 mmol/L (21-32); CREATININE 1.4 mg/dL (0.55-1.3); GLUCOSE,RANDOM 93 mg/dL (74-106); POTASSIUM 4.2 mmol/L (3.5-5.1); SODIUM 138 mmol/L (136-145)
[2018-06-28] MEDS: PRENATAL VITAMINS W/ FOLIC ACID TABLET (FP) PO SCH (09:05)
--- NOTE | 2018-06-28 11:23 | PN ---
Progress Note (short form) - Note Progress Note: Renal follow up for hypertension and AYESHA/CKD Pt seen and examined at the bedside no acute complaints for discharge home today Vital Signs Temperature 98.1 F 06/28/18 05:53 Pulse Rate 87 06/28/18 05:53 Respiratory Rate 18 06/28/18 05:53 Blood Pressure 134/85 06/28/18 05:53 O2 Sat by Pulse Oximetry (%) 100 06/27/18 09:00 NAD Trace LE edema CBC, BMP 06/27/18 08:00 06/28/18 06:30 Current Medications Acetaminophen (Tylenol -) 650 mg PO Q4H PRN PRN Reason: PAIN LEVEL 1-5 Last Admin: 06/27/18 21:14 Dose: 650 mg Bisacodyl (Dulcolax Suppository -) 10 mg RC PRN PRN PRN Reason: CONSTIPATION Diphenhydramine HCl (Benadryl Injection -) 25 mg IVPUSH Q4H PRN PRN Reason: Pruritis Last Admin: 06/24/18 23:10 Dose: 25 mg Labetalol HCl (Normodyne -) 200 mg PO Q6H PRN PRN Reason: HYPERTENSION Methylergonovine Maleate (Methergine Injection -) 0.2 mg IM Q4H PRN PRN Reason: Excessive Bleeding (L&D) Nifedipine (Procardia Xl -) 60 mg PO 0600 ADRIA Last Admin: 06/28/18 05:50 Dose: 60 mg Ondansetron HCl (Zofran Injection) 4 mg IVPUSH Q4H PRN PRN Reason: NAUSEA Multivit/Folic Acid/Iron ( Vitamins (Sjr) -) 1 tab PO DAILY ADRIA Last Admin: 06/28/18 09:05 Dose: 1 tab Simethicone (Mylicon -) 80 mg PO Q4H PRN PRN Reason: GAS Last Admin: 06/27/18 21:15 Dose: 80 mg 32 year old Jud Hungarian woman with no significant PMhx who presented for C- section now with AYESHA and Hypertension #AYESHA with hydronephrosis (improving) # Hypertension (normal LFT's an ptl counts, 1+ protein in urine) #Hydronephrosis (secondary to ) Renal function improving but not normalized yet will need outpatient renal follow up and repeat US in 2-4 weeks BP is well controlled can be discharged on Nifedpine ER 30mg daily low salt diet pt advised on symptoms of hypotension and what to do if they occur our office contact information was provided should follow up in 2 weeks Sean Michaels DO
[2018-06-28 11:49] VITALS: BP 146/91; PULSE 88
--- NOTE | 2018-07-04 15:00 | PATH ---
Surgical Pathology Report Patient Name: MEERA BO [facility]. Rec. #: [id number] /Age/Gender: 1985 (Age: 32) / F Account: [id number] Location: [facility] OBS/INTERN ARCHITECT Taken: 06/24/2018 Received: 06/26/2018 Reported: 07/04/2018 Physicians: Jessica Goodman M.D. Specimen(s) Received PLACENTA Clinical History 36.1 weeks gestation, PIH, GBM, PROM Final Diagnosis PLACENTA, SECTION: 568 G THIRD TRIMESTER PLACENTA WITH TRIVASCULAR UMBILICAL CORD AND UNREMARKABLE PLACENTAL MEMBRANES. Electronically Signed Yasemin Willett M.D. Gross Description The specimen is received fresh labeled placenta and is a 568 gram, 25.0 x 15.0 x 2.2 cm. placenta with attached membranes and umbilical cord. The attached membranes are coronel, translucent with focal opacities and insert marginally. The umbilical cord measures 20 cm. in length and averages 1.2 cm. in diameter. The cord inserts eccentrically, 4 cm. to the nearest margin. No true knots or strictures are identified. Cut surface of the umbilical cord reveals 3 vessels. The surface is nash-blue with minimal fibrin deposition and appropriate caliber vessels. The maternal surface is red-brown with focal defects. Sectioning reveals red-brown, spongy parenchyma. No lesions are identified. It Consulting Director sections are submitted in three cassettes as follows: 1- membrane rolls and umbilical cord; 2-3- full thickness sections of placenta. 07/03/201807/03/2018
== END 2018-06-28 11:50 | disposition home or self-care (01) | DRG 786 ==
LOC: JDEL 10:52 → JLDR 06-24 02:45 → UNDOADMIN 06-24 02:45 → JLDR 06-24 12:20 → J3W 06-24 22:15
PROVIDERS: ADMIT Obstetrics & Gynecology; ATTEND Obstetrics & Gynecology
PROC: 10D00Z1 Extraction of Products of Conception, Low, Open Approach (ICD-10-PCS; principal; 2018-06-24)
DX: O32.1XX0 Maternal care for breech presentation, not applicable or unspecified (principal); O60.14X0 Preterm labor third trimester with preterm delivery third trimester, not applicable or unspecified; N17.9 Acute kidney failure, unspecified; N13.30 Unspecified hydronephrosis; O14.94 Unspecified pre-eclampsia, complicating childbirth; O99.89 Other specified diseases and conditions complicating pregnancy, childbirth and the puerperium; O40.3XX0 Polyhydramnios, third trimester, not applicable or unspecified; O24.415 Gestational diabetes mellitus in pregnancy, controlled by oral hypoglycemic drugs; O13.3 Gestational [pregnancy-induced] hypertension without significant proteinuria, third trimester; O36.63X0 Maternal care for excessive fetal growth, third trimester, not applicable or unspecified; O69.81X0 Labor and delivery complicated by cord around neck, without compression, not applicable or unspecified; O77.0 Labor and delivery complicated by meconium in amniotic fluid; O34.29 Maternal care due to uterine scar from other previous surgery; O99.013 Anemia complicating pregnancy, third trimester; D57.3 Sickle-cell trait; Z3A.36 36 weeks gestation of pregnancy; Z37.0 Single live birth
CPT/HCPCS: 36415; 36600; 59025; 71046-TC-FY; 76775-TC; 80048; 80053; 81003; 81015; 82570; 82803; 82962; 82977; 83010; 83735; 84100; 84156; 84443; 84450; 84460; 84550; 85025; 85032; 85044; 85610; 85730; 86038; 86593; 86850; 86900; 86901; 88307-TC

== ENCOUNTER 2021-07-27 04:15 | Inpatient (IN) | payer OTHER ==
[2021-07-27 06:35] VITALS: BMI 36.8
[2021-07-27] MEDS ORDERED: ELECTROLYTE-148 SOLN 500 ML IV ONE (06:45)
[2021-07-27] MEDS ORDERED: CITRIC ACID/SODIUM CITRATE 30 ML UNIT-DOSE CUP PO ONE (06:45)
[2021-07-27] MEDS ORDERED: ELECTROLYTE-148 SOLN 1,000 ML IV SCH ×3 (07:00→08:15)
[2021-07-27] MEDS ORDERED: morphine SULFATE/PF 1 MG/2 ML (2cc Syringe - QUVA) ONE (08:09)
[2021-07-27] MEDS ORDERED: IBUPROFEN 600 MG TABLET (FP) PO PRN ×2 (08:15→10:17)
[2021-07-27] MEDS ORDERED: BENZOCAINE 20% 57 GM BOTTLE TP PRN (08:15)
[2021-07-27] MEDS ORDERED: IBUPROFEN 800 MG/8 ML IJ IVPB PRN (08:15)
[2021-07-27] MEDS ORDERED: OXYTOCIN 20 UNITS in 0.9% NS 20 UNIT/1,000 ML INFUS.BAG IV SCH (08:15)
[2021-07-27] MEDS ORDERED: BENZOCAINE 28 GM HEMORRHOIDAL OINTMENT TP PRN (08:15)
[2021-07-27] MEDS ORDERED: ACETAMINOPHEN 325 MG TABLET (FP) PO PRN ×2 (08:15→10:17)
[2021-07-27] MEDS ORDERED: SENNOSIDES/DOCUSATE COMBO (SENNA PLUS) TABLET (UD) PO PRN (08:15)
[2021-07-27] MEDS ORDERED: METHYLERGONOVINE MALEATE 0.2 MG/1 ML AMP IM PRN (08:15)
[2021-07-27] MEDS ORDERED: SIMETHICONE 80 MG TAB.CHEW (FP) PO PRN (08:15)
[2021-07-27] MEDS ORDERED: ceFAZolin SODIUM 1 GM VIAL ONE (09:08)
[2021-07-27] MEDS ORDERED: OXYTOCIN 10 UNITS/ML VIAL ONE (09:08)
[2021-07-27] MEDS ORDERED: PHENYLEPHRINE HCL 10 MG/1 ML SINGLE DOSE VIAL ONE (09:08)
[2021-07-27 09:16] LABS: CORD HCO3 25.2 mmHg (20-29); CORD PCO2 65.2 mmHg (30-78); CORD pH 7.205 (7.14-7.44)
[2021-07-27 09:19] LABS: CORD BASE EXCESS -2.7 mmol/L (0-2); CORD HCO3 23.9 mmHg (20-29); CORD PCO2 48.8 mmHg (30-78); CORD pH 7.308 (7.14-7.44)
[2021-07-27] MEDS ORDERED: PRENATAL VITAMINS W/ FOLIC ACID TABLET (FP) PO SCH (10:00)
[2021-07-27] MEDS ORDERED: FERROUS SO4 325 MG TABLET (FP) PO SCH (10:00)
[2021-07-27] MEDS ORDERED: ONDANSETRON 4 MG/2 ML VIAL IVPUSH PRN (10:17)
[2021-07-27] MEDS ORDERED: OXYTOCIN 20 UNITS in 0.9% NS 20 UNIT/1,000 ML INFUS.BAG IV ONE (10:43)
[2021-07-27] MEDS: IBUPROFEN 800 MG/8 ML IJ IVPB PRN (12:14)
[2021-07-27 13:17] LABS: HIV INTERPRETATION NEGATIVE (NEGATIVE)
[2021-07-28] MEDS: IBUPROFEN 800 MG/8 ML IJ IVPB PRN ×2 (00:22→05:58)
[2021-07-28] MEDS ORDERED: oxyCODONE HCL 5 MG TABLET PO PRN ×2 (08:00)
[2021-07-28] MEDS ORDERED: BISACODYL 10 MG SUPP.RECT RC PRN (08:15)
[2021-07-28] MEDS ORDERED: IBUPROFEN 400 MG TABLET (FP) PO PRN (10:35)
[2021-07-28 13:03] LABS: BASO % 0.4 % (0-2.0); EOS % 0.8 % (0-4.5); HEMATOCRIT 28.8 % (32.4-45.2); HEMOGLOBIN 9.9 GM/dL (10.7-15.3); LYMPH % 17.8 % (8-40); MCH 30.2 pg (25.7-33.7); MCHC 34.2 g/dl (32.0-36.0); MEAN CELL VOLUME 88.2 fl (80-96); MEAN PLT VOLUME 9.3 fl (7.5-11.1); MONO % 5.5 % (3.8-10.2); NEUT % 75.5 % (42.8-82.8); PLATELET COUNT 193 10^3/uL (134-434); RBC 3.27 M/mm3 (3.60-5.2); RDW 15.7 % (11.6-15.6); WHITE BLOOD COUNT 9.5 K/mm3 (4.0-10.0)
[2021-07-28] MEDS: ACETAMINOPHEN 325 MG TABLET (FP) PO PRN ×2 (13:19→19:38)
[2021-07-28] MEDS: oxyCODONE HCL 5 MG TABLET PO PRN ×2 (14:21→21:46)
[2021-07-29] MEDS: oxyCODONE HCL 5 MG TABLET PO PRN ×2 (03:02→09:00)
[2021-07-29 09:26] LABS: BASO % 0.4 % (0-2.0); EOS % 0.6 % (0-4.5); HEMATOCRIT 28.8 % (32.4-45.2); HEMOGLOBIN 10.1 GM/dL (10.7-15.3); LYMPH % 18.5 % (8-40); MCH 30.6 pg (25.7-33.7); MCHC 35.2 g/dl (32.0-36.0); MEAN CELL VOLUME 86.8 fl (80-96); MEAN PLT VOLUME 8.3 fl (7.5-11.1); MONO % 6.2 % (3.8-10.2); NEUT % 74.3 % (42.8-82.8); PLATELET COUNT 201 10^3/uL (134-434); RBC 3.32 M/mm3 (3.60-5.2); RDW 16.1 % (11.6-15.6); WHITE BLOOD COUNT 9.5 K/mm3 (4.0-10.0)
[2021-07-29] MEDS ORDERED: SENNOSIDES/DOCUSATE COMBO (SENNA PLUS) TABLET (UD) PO PRN (21:11)
[2021-07-29] MEDS: IBUPROFEN 600 MG TABLET (FP) PO PRN (21:24)
[2021-07-30 09:58] VITALS: BP 128/89; PULSE 90; TEMP 98.1
[2021-07-30] MEDS: IBUPROFEN 600 MG TABLET (FP) PO PRN (10:28)
== END 2021-07-30 12:30 | disposition home or self-care (01) | DRG 788 ==
LOC: JLDR 04:15 → J3W 11:00
PROVIDERS: ADMIT Obstetrics & Gynecology; ATTEND Obstetrics & Gynecology
PROC: 10D00Z1 Extraction of Products of Conception, Low, Open Approach (ICD-10-PCS; principal; 2021-07-27)
DX: O34.211 Maternal care for low transverse scar from previous cesarean delivery (principal); Z3A.39 39 weeks gestation of pregnancy; Z37.0 Single live birth; O90.81 Anemia of the puerperium; D64.9 Anemia, unspecified
CPT/HCPCS: 36415; 36600; 82803; 85025; 87389; 88307-TC